=== PATIENT | male | born 1965 | race Caucasian/White ===

== ENCOUNTER 2020-05-17 13:23 | Emergency (ER) | payer BC ==
[2020-05-17 13:42] VITALS: BP 150/93; PULSE 96
--- NOTE | 2020-05-17 14:38 | EDM.PDOC ---
ED HPI GENERAL MEDICAL PROBLEM - General Chief Complaint: Fever Stated Complaint: FEVER BODY ACHES Time Seen by Provider: 05/17/20 14:38 Source of Information: Reports: Patient - History of Present Illness INITIAL COMMENTS - FREE TEXT/NARRATIVE: 54 year old male presents to [facility] for evaluation of multiple symptoms all of which started after work last evening. Patient competed his entire work d ay but felt very tired after work, sat in his recliner and fell asleep which is unusual. He tired to get up ad go outside for fresh air but felt worse. Patient described multiple joint aches, headache which is worse with coughing or sneezing, general body aches and pains, fever 102 to upper 101+ with normal temperature 96 when not ill. Patient works in a care facility and unknown if exposed to COVID but concerned regarding kate the virus. Patient has a cough with feels like a catch in his breath causing cough if deep breath. Patient denies urinary symptoms, diarrhea or constipation. Patient denies rashes or sore to his skin. Patient is not aware of any ill contacts. Generalized Pain Score (Numeric/FACES): 5 - Related Data Allergies Allergy/AdvReac Type Severity Reaction Status Date / Time codeine AdvReac Cough Verified 05/17/20 14:16 Home Meds: Home Meds Sildenafil Citrate [Viagra] 25 mg PO ASDIRECTED PRN 02/22/16 [History] Amoxicillin/Potassium Clav [Augmentin 875-125 Tablet] 1 each PO BID 10 Days #20 tablet 05/17/20 [Rx] Past Medical History HEENT History: Reports: Impaired Vision Cardiovascular History: Reports: Angina, High Cholesterol Respiratory History: Reports: None Gastrointestinal History: Reports: None Genitourinary History: Reports: Other (See Below) Other Genitourinary History: erectile dysfunction Musculoskeletal History: Reports: Back Pain, Chronic, Fracture Psychiatric History: Reports: None Endocrine/Metabolic History: Reports: None Hematologic History: Reports: None Immunologic History: Reports: None Oncologic (Cancer) History: Reports: None - Infectious Disease History Infectious Disease History: Reports: Chicken Pox, Influenza - Past Surgical History Cardiovascular Surgical History: Reports: Percutaneous Transluminal Angioplasty Neurological Surgical History: Reports: Discectomy, Lumbar Spine Musculoskeletal Surgical History: Reports: Other (See Below) Other Musculoskeletal Surgeries/Procedures:: lower back surgery Social & Family History - Tobacco Use Smoking Status *Q: Former Smoker Used Tobacco, but Quit: Yes Month/Year Tobacco Last Used: 30 YEARS - Caffeine Use Caffeine Use: Reports: Coffee - Recreational Drug Use Recreational Drug Use: No ED ROS GENERAL - Review of Systems Review Of Systems: Comprehensive ROS is negative, except as noted in HPI. ED EXAM, GENERAL - Physical Exam Exam: See Below Exam Limited By: No Limitations General Appearance: Alert, WD/WN, Moderate Distress (worse headache with cough) Eye Exam: Bilateral Eye: EOMI, Normal Inspection Ears: Normal External Exam, Hearing Grossly Normal Nose: Normal Inspection Throat/Mouth: Normal Inspection, Normal Voice, No Airway Compromise Neck: Normal Inspection, Supple, Non-Tender Respiratory/Chest: Lungs Clear, Normal Breath Sounds (catches in throat with deep respiration) Cardiovascular: Regular Rate, Rhythm, No Murmur GI/Abdominal: Soft, Non-Tender (Male) Exam: Deferred Rectal (Males) Exam: Deferred Back Exam: No: CVA Tenderness (R), CVA Tenderness (L) Extremities: Normal Inspection, Normal Range of Motion, Non-Tender, Normal Capillary Refill, No Pedal Edema Neurological: Alert, Oriented, CN II-XII Intact, Normal Cognition, Normal Gait, No Motor/Sensory Deficits Psychiatric: Normal Affect, Normal Mood Skin Exam: Warm, Dry, Intact, Normal Color, No Rash Course - Vital Signs Last Recorded V/S: Last Vital Signs Temp 36.6 C 05/17/20 14:14 Pulse 96 05/17/20 14:14 Resp 12 05/17/20 14:14 BP 150/93 H 05/17/20 14:14 Pulse Ox 95 05/17/20 14:14 - Orders/Labs/Meds Orders: Active Orders 24 hr Category Date Time Status CXR [Chest 2V] [CR] Stat Exams 05/17/20 14:51 Taken BABESIA MICROTI ANTIBODY PANEL Urgent Lab 05/17/20 15:08 Received CORONAVIRUS COVID-19, ILENE Routine Lab 05/17/20 15:20 Received HUMAN GRANULOCYTIC DREW-HGE Urgent Lab 05/17/20 15:08 Received LYME, TOTAL AB TEST/REFLEX Routine Lab 05/17/20 15:08 Received Isolation [COMM] Routine Oth 05/17/20 14:54 Ordered Labs: Laboratory Tests 05/17/20 05/17/20 05/17/20 Range/Units 14:07 14:07 14:31 WBC 6.7 (4.5-11.0) K/uL RBC 4.54 (4.30-5.90) M/uL Hgb 14.1 (12.0-15.0) g/dL Hct 40.3 (40.0-54.0) % MCV 89 (80-98) fL MCH 31 (27-31) pg MCHC 35 (32-36) % Plt Count 148 L (150-400) K/uL Neut % (Auto) 79 H (36-66) % Lymph % (Auto) 12 L (24-44) % [place] % (Auto) 9 H (2-6) % Eos % (Auto) 0 L (2-4) % Baso % (Auto) 0 (0-1) % Sodium 135 L (140-148) mmol/L Potassium 3.8 (3.6-5.2) mmol/L Chloride 99 L (100-108) mmol/L Carbon Dioxide 28 (21-32) mmol/L Anion Gap 11.8 (5.0-14.0) mmol/L BUN 10 (7-18) mg/dL Creatinine 1.2 (0.8-1.3) mg/dL Est Cr Clr Drug Dosing 83.72 mL/min Estimated GFR (MDRD) > 60 (>60) Glucose 103 (74-106) mg/dL Calcium 8.4 L (8.5-10.1) mg/dL Total Bilirubin 1.0 D (0.2-1.0) mg/dL AST 21 (15-37) U/L ALT 34 (12-78) U/L Alkaline Phosphatase 85 (46-116) U/L C-Reactive Protein 3.66 H (0.0-0.3) mg/dL Total Protein 7.4 (6.4-8.2) g/dL Albumin 3.7 (3.4-5.0) g/dL Globulin 3.7 H (2.3-3.5) g/dL Albumin/Globulin Ratio 1.0 L (1.2-2.2) Urine Color Other A (YELLOW) Urine Appearance Clear (CLEAR) Urine pH 6.0 (5.0-8.0) Ur Specific [place] 1.020 (1.008-1.030) Urine Protein Negative (NEGATIVE) mg/dL Urine Glucose (UA) Negative (NEGATIVE) mg/dL Urine Ketones Negative (NEGATIVE) mg/dL Urine Occult Blood Negative (NEGATIVE) Urine Nitrite Negative (NEGATIVE) Urine Bilirubin Negative (NEGATIVE) Urine Urobilinogen 0.2 (0.2-1.0) EU/dL Ur Leukocyte Esterase Negative (NEGATIVE) Urine RBC Not seen (0-5) Urine WBC Not seen (0-5) Urine Bacteria Not seen Urine Mucus Few Meds: Medications Discontinued Medications Generic Name Dose Route Start Last Admin Trade Name Erickq PRN Reason Stop Dose Admin Amoxicillin/Clavulanate Potassium 1 tab 05/17/20 15:31 05/17/20 15:53 Augmentin 875 Mg/125 Mg PO 05/17/20 15:32 1 tab ONETIME ONE Administration - Radiology Interpretation Free Text/Narrative:: CXR PA/LAT: no acute cardiopulmonary findings noted. Images read by myself during ER visit. Radiology report pending. Departure - Departure Time of Disposition: 16:22 Disposition: Home, Self-Care 01 Clinical Impression: Fever, unknown origin - Discharge Information Prescriptions: Amoxicillin/Potassium Clav [Augmentin 875-125 Tablet] 1 each PO BID 10 Days #20 tablet Instructions: General Headache Without Cause, [id number], Fever, Adult, [id number] Referrals: PCP,None [Primary Care Provider] - 3 Days (recheck Tuesday-Tuesday to ensure improving and review test results (telephone visit) recommended) Forms: ED Department Discharge Additional Instructions: 1. Augmentin 857mg every am and pm x 5 days for dental infection 10 days for possible tick exposure if concern for lyme may need to take upto 28 days. 2. Naproxen 500mg every 8-12 hours OR ibuprofen 600mg every 6-8 hours with food for pain, fever, inflammation and swelling. 3. COVID test completed today may take up to 5-7 days for results. 4. Note for work written. 5. Discussed Dental infection, Tick borne illness, COVID, unknown viral illness vs meningitis. 6. Return to ER in the next 12-24 hours if symptoms worsen or new concerns with headache, fever and neck stiffness may warrant CT Head and Spinal tap. 7. Follow up in clinic on Tuesday/Tuesday if not improving and 10 days if continue symptoms to discuss duration of Augmentin (amoxicillin for tick illness treatment). Sepsis Event Note (ED) - Evaluation Sepsis Screening Result: No Definite Risk - Focused Exam Vital Signs: Vital Signs Temp Pulse Resp BP Pulse Ox 05/17/20 14:14 36.6 C 96 12 150/93 H 95 05/17/20 13:41 36.6 C 96 12 150/93 H 95 - My Orders Last 24 Hours: My Active Orders 05/17/20 14:51 CXR [Chest 2V] [CR] Stat 05/17/20 14:54 Isolation [COMM] Routine 05/17/20 15:08 BABESIA MICROTI ANTIBODY PANEL Urgent HUMAN GRANULOCYTIC DREW-HGE Urgent LYME, TOTAL AB TEST/REFLEX Routine 05/17/20 15:20 CORONAVIRUS COVID-19, ILENE Routine - Assessment/Plan Last 24 Hours: My Active Orders 05/17/20 14:51 CXR [Chest 2V] [CR] Stat 05/17/20 14:54 Isolation [COMM] Routine 05/17/20 15:08 BABESIA MICROTI ANTIBODY PANEL Urgent HUMAN GRANULOCYTIC DREW-HGE Urgent LYME, TOTAL AB TEST/REFLEX Routine 05/17/20 15:20 CORONAVIRUS COVID-19, ILENE Routine
[2020-05-17] MEDS ORDERED: Amoxicillin/Clavulanate K 875-125 MG Tab PO ONE (15:31)
--- NOTE | 2020-05-19 09:30 | CR ---
CHEST: 2 view CLINICAL HISTORY:Cough COMPARISON:2018 FINDINGS: The heart size, pulmonary vascularity and hilar structures are normal. No infiltrate effusion or pneumothorax is seen. IMPRESSION: No acute cardiopulmonary process.
[2020-05-21 11:11] LABS: LYME IGG/IGM AB <0.91 ISR (0.00-0.90)
[2020-05-21 14:11] LABS: HGE IGG TITER Negative (Neg:<1:64); HGE IGM TITER Negative (Neg:<1:20)
[2020-05-21 17:11] LABS: BABESIA MICROTI IGG <1:10 (Neg:<1:10); BABESIA MICROTI IGM <1:10 (Neg:<1:10)
== END 2020-05-17 16:29 | disposition home or self-care (01) ==
LOC: JP.ED 13:23
DX: R50.9 Fever, unspecified (principal); Z88.5 Allergy status to narcotic agent; Z87.891 Personal history of nicotine dependence
CPT/HCPCS: 36415; 71046; 80053; 81001; 85025; 86140; 86618; 86666; 86753; 87635; 87804; 99283; A9270; U0002

== ENCOUNTER 2021-11-05 09:01 | Day surgery (SDC) | payer BC ==
[2021-11-05] MEDS ORDERED: Propofol 200 MG/20 ML SDV ONE ×2 (09:32→11:27)
[2021-11-05] MEDS ORDERED: Midazolam 1 MG/ML 2 ML SDV ONE (09:32)
[2021-11-05] MEDS ORDERED: fentaNYL 100 MCG/2 ML SDV ONE (09:32)
[2021-11-05] MEDS ORDERED: Sodium Chloride 0.9% 1,000 ML IV SCH (09:45)
[2021-11-05 12:12] VITALS: BP 142/77; PULSE 73
--- NOTE | 2021-11-05 12:22 | OR ---
DATE OF PROCEDURE: 11/05/2021 SURGEON: Randell Powell MD PROCEDURE: Colonoscopy. FINDINGS: 1. Ascending colon polyp, approximately 3 mm, completely removed using cold biopsy forceps. 2. Ascending colon polyp #2, approximately 8 mm, completely removed using hot snare wire device. 3. Descending colon polyp of approximately 1 cm, completely removed using endoscopic mucosal resection technique. 4. Internal hemorrhoid banding. 5. External hemorrhoids, prominent, nonthrombosed. COMPLICATION: None. PHOTOGRAMMETRIC SURVEYOR: None. ANESTHETIC: MAC. PREOPERATIVE DIAGNOSIS: Positive Cologuard. POSTOPERATIVE DIAGNOSIS: Positive Cologuard. RISKS: Risks, benefits, alternatives, and limitations including, but not limited to infection, bleeding, perforation, false positives, false negatives were explained to the patient who wished to proceed. PROCEDURE IN DETAIL: The patient was placed in left lateral decubitus position. Digital rectal exam was performed, which showed prominent external hemorrhoids without evidence of thrombosis. Scope was brought up to the ileocecal valve. A photo was taken of the appendiceal orifice. The scope was brought back. The aforementioned polyps were identified and completely removed as described above. The patient also had bleeding due to hemorrhoids that he was concerned about; therefore, this was also banded. The most prominent hemorrhoids also banded x1. No other abnormalities noted on retroflex. Greater than 8 minutes was spent removing the scope. Prep was acceptable, approximately 90% of luminal surface could be seen. Randell Powell MD /[id number]
== END 2021-11-05 12:25 | disposition home or self-care (01) ==
LOC: JP.SDS 09:01
PROVIDERS: ATTEND Surgery
DX: D12.2 Benign neoplasm of ascending colon (principal); D12.4 Benign neoplasm of descending colon; K64.8 Other hemorrhoids; K64.4 Residual hemorrhoidal skin tags; Z88.5 Allergy status to narcotic agent
CPT/HCPCS: 45380; 45385; 45390; J2250; J2704; J3010; J7030

== ENCOUNTER 2023-04-03 10:59 | Emergency (ER) | payer BC ==
[2023-04-03 11:57] VITALS: BP 143/91; PULSE 65
[2023-04-03 12:42] LABS: BASOPHILS ABSOLUTE AUTO 0.03 K/uL (0.00-0.10); BASOPHILS PERCENT AUTO 0.5 % (0.1-1.3); EOSINOPHILS ABSOLUTE AUTO 0.22 K/uL (0.00-0.40); EOSINOPHILS PERCENT AUTO 3.8 % (0.0-5.4); HEMATOCRIT 40.4 % (38.4-49.7); HEMOGLOBIN 12.8 g/dL (12.9-16.9); IMMATURE GRAN ABSOLUTE AUTO 0.02 K/uL (0.00-0.23); IMMATURE GRAN PERCENT AUTO 0.3 % (0.0-0.7); LYMPHOCYTES ABSOLUTE AUTO 1.47 K/uL (0.8-3.3); LYMPHOCYTES PERCENT AUTO 25.1 % (11.4-47.7); MEAN CORPUSCULAR HGB CONC 31.7 g/dL (31.6-35.5); MEAN CORPUSCULAR VOLUME 85.2 fL (81.4-99.0); MONOCYTES ABSOLUTE AUTO 0.47 K/uL (0.20-0.90); NEUTROPHILS ABSOLUTE AUTO 3.65 K/uL (1.0-7.6); NEUTROPHILS PERCENT AUTO 62.3 % (40.0-78.1); PLATELET COUNT,PLT 224 K/uL (130-375); RED BLOOD CELL COUNT 4.74 M/uL (4.14-5.76); WHITE BLOOD CELL COUNT,WBC 5.9 K/uL (3.2-11.0)
[2023-04-03 13:11] LABS: A/G RATIO 1.1 (1.2-2.2); ALANINE AMINOTRANSFERASE,ALT 25 U/L (12-78); ALBUMIN 3.9 g/dL (3.4-5.0); ALKALINE PHOSPHATASE 77 U/L (46-116); ASPARTATE AMNIOTRANSFERASE,AST 17 U/L (15-37); BILIRUBIN TOTAL 0.3 mg/dL (0.2-1.0); BLOOD UREA NITROGEN,BUN 19 mg/dL (7-18); CARBON DIOXIDE,CO2 30 mmol/L (21-32); CHLORIDE,CL 105 mmol/L (100-108); CREATININE 0.8 mg/dL (0.8-1.3); ESTIMATED GFR 105 mL/min (>60); GLUCOSE RANDOM 95 mg/dL (74-106); POTASSIUM,K 4.7 mmol/L (3.6-5.2); PROTEIN TOTAL,TP 7.4 g/dL (6.4-8.2); SODIUM,NA 139 mmol/L (140-148); TROPONIN I HIGH SENSITIVITY 14.1 pg/mL (<=60.3); TSH ULTRASENSITIVE 1.815 uIU/mL (0.358-3.740)
[2023-04-03 13:12] LABS: ANION GAP 8.7 mmol/L (5.0-14.0)
== END 2023-04-03 13:38 | disposition home or self-care (01) ==
LOC: JP.ED 10:59
DX: K22.4 Dyskinesia of esophagus (principal); E66.9 Obesity, unspecified; Z68.31 Body mass index [BMI] 31.0-31.9, adult; Z86.16 Personal history of COVID-19; Z88.5 Allergy status to narcotic agent; Z79.899 Other long term (current) drug therapy
CPT/HCPCS: 36415; 80053; 84443; 84484; 85025; 99284

== ENCOUNTER 2024-02-28 21:25 | Emergency (ER) | payer BC ==
[2024-02-28 22:10] VITALS: BP 140/92; PULSE 55
[2024-02-28 23:06] LABS: BASOPHILS ABSOLUTE AUTO 0.03 K/uL (0.00-0.10); BASOPHILS PERCENT AUTO 0.5 % (0.1-1.3); EOSINOPHILS ABSOLUTE AUTO 0.25 K/uL (0.00-0.40); EOSINOPHILS PERCENT AUTO 4.4 % (0.0-5.4); HEMATOCRIT 39.7 % (38.4-49.7); IMMATURE GRAN PERCENT AUTO 0.2 % (0.0-0.7); LYMPHOCYTES ABSOLUTE AUTO 1.87 K/uL (0.8-3.3); LYMPHOCYTES PERCENT AUTO 32.9 % (11.4-47.7); MEAN CORPUSCULAR HEMOGLOBIN 29.4 pg (31.6-35.5); MEAN CORPUSCULAR HGB CONC 35.3 g/dL (31.6-35.5); MEAN CORPUSCULAR VOLUME 83.2 fL (81.4-99.0); MONOCYTES ABSOLUTE AUTO 0.54 K/uL (0.20-0.90); MONOCYTES PERCENT AUTO 9.5 % (3.3-12.6); NEUTROPHILS ABSOLUTE AUTO 2.99 K/uL (1.0-7.6); NEUTROPHILS PERCENT AUTO 52.5 % (40.0-78.1); PLATELET COUNT,PLT 222 K/uL (130-375); RED BLOOD CELL COUNT 4.77 M/uL (4.14-5.76); WHITE BLOOD CELL COUNT,WBC 5.7 K/uL (3.2-11.0)
[2024-02-28 23:14] LABS: IMMATURE GRAN ABSOLUTE AUTO 0.01 K/uL (0.00-0.23)
[2024-02-28 23:28] LABS: A/G RATIO 1.1 (1.2-2.2); ALANINE AMINOTRANSFERASE,ALT 39 U/L (12-78); ALKALINE PHOSPHATASE 86 U/L (46-116); ANION GAP 8.6 mmol/L (5.0-14.0); ASPARTATE AMNIOTRANSFERASE,AST 24 U/L (15-37); BILIRUBIN TOTAL 0.4 mg/dL (0.2-1.0); BLOOD UREA NITROGEN,BUN 12 mg/dL (7-18); CALCIUM 9.3 mg/dL (8.5-10.1); CARBON DIOXIDE,CO2 28 mmol/L (21-32); CHLORIDE,CL 103 mmol/L (100-108); CREATININE 0.9 mg/dL (0.8-1.3); EST CRCL DRUG DOSING (CG) 106.56 mL/min; ESTIMATED GFR 100 mL/min (>60); GLUCOSE RANDOM 90 mg/dL (74-106); POTASSIUM,K 3.7 mmol/L (3.6-5.2); PROTEIN TOTAL,TP 7.5 g/dL (6.4-8.2); SODIUM,NA 140 mmol/L (140-148)
== END 2024-02-28 23:58 | disposition home or self-care (01) ==
LOC: JP.ED 21:25
DX: K64.9 Unspecified hemorrhoids (principal); Z88.5 Allergy status to narcotic agent; Z79.899 Other long term (current) drug therapy; Z86.16 Personal history of COVID-19
CPT/HCPCS: 36415; 80053; 85025; 99283

== ENCOUNTER 2024-03-28 16:43 | Emergency (ER) | payer BC ==
[2024-03-28 17:04] VITALS: BP 149/97; PULSE 62
[2024-03-28 17:35] LABS: BASOPHILS PERCENT AUTO 0.3 % (0.1-1.3); EOSINOPHILS PERCENT AUTO 3.4 % (0.0-5.4); HEMOGLOBIN 13.9 g/dL (12.9-16.9); IMMATURE GRAN PERCENT AUTO 0.3 % (0.0-0.7); LYMPHOCYTES ABSOLUTE AUTO 1.74 K/uL (0.8-3.3); LYMPHOCYTES PERCENT AUTO 29.9 % (11.4-47.7); MEAN CORPUSCULAR HGB CONC 35.6 g/dL (31.6-35.5); MEAN CORPUSCULAR VOLUME 84.2 fL (81.4-99.0); MONOCYTES ABSOLUTE AUTO 0.54 K/uL (0.20-0.90); MONOCYTES PERCENT AUTO 9.3 % (3.3-12.6); NEUTROPHILS ABSOLUTE AUTO 3.29 K/uL (1.0-7.6); NEUTROPHILS PERCENT AUTO 56.8 % (40.0-78.1); PLATELET COUNT,PLT 220 K/uL (130-375); RED BLOOD CELL COUNT 4.63 M/uL (4.14-5.76); WHITE BLOOD CELL COUNT,WBC 5.8 K/uL (3.2-11.0)
[2024-03-28 17:36] LABS: BASOPHILS ABSOLUTE AUTO 0.02 K/uL (0.00-0.10); IMMATURE GRAN ABSOLUTE AUTO 0.02 K/uL (0.00-0.23)
[2024-03-28 17:58] LABS: INR 0.9; PROTHROMBIN TIME 9.4 sec (9.2-10.6); PTT,PARTIAL THROMBOPLSTIN TIME 28.1 sec (21.8-27.3)
[2024-03-28 18:13] LABS: A/G RATIO 1.1 (1.2-2.2); ALANINE AMINOTRANSFERASE,ALT 49 U/L (12-78); ALBUMIN 4.2 g/dL (3.4-5.0); ALKALINE PHOSPHATASE 80 U/L (46-116); ANION GAP 8.8 mmol/L (5.0-14.0); ASPARTATE AMNIOTRANSFERASE,AST 28 U/L (15-37); BILIRUBIN TOTAL 0.5 mg/dL (0.2-1.0); BLOOD UREA NITROGEN,BUN 17 mg/dL (7-18); CALCIUM 9.4 mg/dL (8.5-10.1); CARBON DIOXIDE,CO2 29 mmol/L (21-32); CHLORIDE,CL 102 mmol/L (100-108); ESTIMATED GFR 88 mL/min (>60); GLUCOSE RANDOM 97 mg/dL (74-106); POTASSIUM,K 4.1 mmol/L (3.6-5.2); PROTEIN TOTAL,TP 7.9 g/dL (6.4-8.2); SODIUM,NA 140 mmol/L (140-148)
[2024-03-28] MEDS: Sodium Chloride 0.9% 50 ML IV SCH (18:14)
[2024-03-28] MEDS: Iopamidol 612 MG/ML 100 ML Bottle IV SCH (18:14)
== END 2024-03-28 19:38 | disposition home or self-care (01) ==
LOC: JP.ED 16:43
DX: K92.1 Melena (principal); Z88.5 Allergy status to narcotic agent; Z79.899 Other long term (current) drug therapy; Z86.16 Personal history of COVID-19
CPT/HCPCS: 36415; 74177; 80053; 85025; 85610; 85730; 86140; 99285; J3490; Q9967; 99283

== ENCOUNTER 2024-10-07 20:36 | Emergency (ER) | payer BC ==
[2024-10-07 22:24] LABS: BASOPHILS ABSOLUTE AUTO 0.01 K/uL (0.00-0.10); BASOPHILS PERCENT AUTO 0.1 % (0.1-1.3); EOSINOPHILS ABSOLUTE AUTO 0.04 K/uL (0.00-0.40); EOSINOPHILS PERCENT AUTO 0.5 % (0.0-5.4); HEMOGLOBIN 13.9 g/dL (12.9-16.9); IMMATURE GRAN ABSOLUTE AUTO 0.03 K/uL (0.00-0.23); IMMATURE GRAN PERCENT AUTO 0.4 % (0.0-0.7); LYMPHOCYTES ABSOLUTE AUTO 0.72 K/uL (0.8-3.3); LYMPHOCYTES PERCENT AUTO 8.7 % (11.4-47.7); MEAN CORPUSCULAR HEMOGLOBIN 29.1 pg (31.6-35.5); MEAN CORPUSCULAR HGB CONC 34.8 g/dL (31.6-35.5); MEAN CORPUSCULAR VOLUME 83.7 fL (81.4-99.0); MONOCYTES ABSOLUTE AUTO 0.75 K/uL (0.20-0.90); NEUTROPHILS ABSOLUTE AUTO 6.77 K/uL (1.0-7.6); NEUTROPHILS PERCENT AUTO 81.3 % (40.0-78.1); PLATELET COUNT,PLT 215 K/uL (130-375); RED BLOOD CELL COUNT 4.78 M/uL (4.14-5.76); WHITE BLOOD CELL COUNT,WBC 8.3 K/uL (3.2-11.0)
[2024-10-07 22:44] LABS: ANION GAP 12.5 mmol/L (5.0-14.0); C-REACTIVE PROTEIN 1.85 mg/dL (<0.50); CALCIUM 9.7 mg/dL (8.5-10.1); CREATININE 1.3 mg/dL (0.8-1.3); EST CRCL DRUG DOSING (CG) 74.93 mL/min; POTASSIUM,K 4.5 mmol/L (3.6-5.2)
[2024-10-07 23:04] LABS: A/G RATIO 0.9 (1.2-2.2); ALBUMIN 3.9 g/dL (3.4-5.0); BILIRUBIN DIRECT 0.21 mg/dL (0.0-0.2); BILIRUBIN INDIRECT 0.59; BILIRUBIN TOTAL 0.8 mg/dL (0.2-1.0); PROTEIN TOTAL,TP 8.1 g/dL (6.4-8.2)
[2024-10-07] MEDS: Sodium Chloride 0.9% 60 ML IV STA (23:09)
[2024-10-07] MEDS: Iopamidol 612 MG/ML 100 ML Bottle IV STA (23:09)
[2024-10-08 00:29] LABS: APPEARANCE,URINE CLEAR (CLEAR); BILIRUBIN,URINE NEGATIVE (NEGATIVE); COLOR,URINE YELLOW (YELLOW); GLUCOSE,URINE NEGATIVE (NEGATIVE); KETONES,URINE 40 mg/dL (NEGATIVE); LEUKOCYTE ESTERASE,URINE NEGATIVE (NEGATIVE); NITRITE,URINE NEGATIVE (NEGATIVE); OCCULT BLOOD,URINE NEGATIVE (NEGATIVE); PH,URINE 5.5 (5.0-8.0); PROTEIN,URINE NEGATIVE (NEGATIVE); UROBILINOGEN,URINE 0.2 EU/dL (0.2-1.0)
[2024-10-08 00:35] LABS: AMORPHOUS SEDIMENT,URINE NOT SEEN; BACTERIA,URINE FEW; EPITHELIAL CELLS,URINE RARE; MUCUS,URINE RARE; RBC,URINE 0-5 (0-5); WBC,URINE 0-5 (0-5)
[2024-10-08 00:59] VITALS: BP 135/89; PULSE 91
== END 2024-10-08 01:01 | disposition home or self-care (01) ==
LOC: JP.ED 20:36
DX: R50.9 Fever, unspecified (principal); E66.9 Obesity, unspecified; Z88.5 Allergy status to narcotic agent; Z68.30 Body mass index [BMI] 30.0-30.9, adult; Z79.899 Other long term (current) drug therapy
CPT/HCPCS: 36415; 74177; 80048; 80076; 81001; 83605; 85025; 86140; 99284; J3490; Q9967